=== PATIENT | male | born 1950 | race Caucasian/White ===

== ENCOUNTER 2021-01-22 10:29 | Inpatient (IN) ==
[2021-01-22] MEDS ORDERED: DEXTROSE 50% 25 GM/50 ML VIAL IV PRN ×2 (10:34)
[2021-01-22] MEDS ORDERED: GLUCAGON 1 MG VIAL IM PRN ×2 (10:34)
[2021-01-22] MEDS ORDERED: CLORAZEPATE 3.75 MG TABLET PO PRN (10:45)
[2021-01-22] MEDS ORDERED: SODIUM CHLORIDE 0.9% 1,000 ML IV SCH (11:00)
[2021-01-22 11:19] LABS: Basophils % 0.4 % (0.0-0.8); Eosinophils # 0.2 10*3/uL (0.0-0.87); Eosinophils % 2.2 % (0.00-10.9); Hematocrit 44.9 VOL% (42.0-52.0); Hemoglobin 14.5 GM/DL (14.0-18.0); Immature Granulocytes % 0.4 %; Immature Granulocytes Absolute 0.03 #; Lymphocytes # 0.8 10*3/uL (1.4-4.0); Lymphocytes % 11.2 % (21.2-54.2); Mean Corpuscular HGB Conc 32.3 GM/DL (32-36); Mean Corpuscular Volume 87.7 FL (87-102); Mean Platelet Volume 10.7 FL (9.6-12.0); Monocytes % 7.5 % (1.7-12.7); Neutrophils % 78.3 % (38.7-73.9); Platelet Count 161 T/CUMM (130-400); Red Blood Count 5.12 MC/CUMM (3.8-5.5); Red Cell Distribution Width 13.8 % (9.3-17.3); White Blood Count 6.9 T/CUMM (4-12)
[2021-01-22 11:36] LABS: Albumin 3.9 G/DL (3.4-5.0); Bilirubin,Total 0.5 MG/DL (0.20-1.00); Calcium 9.2 MG/DL (8.5-10.1); Potassium 4.1 MMOL/L (3.5-5.1); Total Protein 7.4 G/DL (6.4-8.2)
[2021-01-22] MEDS ORDERED: NITROGLYCERIN SL 0.4 MG TABLET SL PRN (12:15)
[2021-01-22] MEDS ORDERED: ALFUZOSIN 10 MG TABLET PO PRN (12:15)
[2021-01-22] MEDS: INSULIN REGULAR 100 UNIT/ML SUBCUT SCH ×3 (12:55→22:37)
[2021-01-22] MEDS: CHLORHEXIDINE 4% SOLN 118 ML BOTTLE TOP SCH ×2 (15:16→22:37)
[2021-01-22 16:58] LABS: ABG HCO3 25.3 MMOL/L (20-26); ABG Oxygen Saturation 97.2 % (95-100); ABG PCO2 37.9 MM HG (35-48); ABG PO2 85.7 MM HG (80-95); ABG TCO2 21.7 MMOL/L (23-27)
[2021-01-22] MEDS: CHLORHEXIDINE 0.12% ORAL RINSE 60 ML BOTTLE SWISH/SPIT SCH (21:05)
[2021-01-23] MEDS ORDERED: PAPAVERINE 60 MG/2 ML VIAL ONE (04:45)
[2021-01-23] MEDS ORDERED: VANCOMYCIN 500 MG VIAL ONE (04:45)
[2021-01-23] MEDS ORDERED: VANCOMYCIN 1,000 MG VIAL ONE (04:45)
[2021-01-23] MEDS ORDERED: DIAZEPAM 5 MG TABLET PO ONE (06:00)
[2021-01-23] MEDS ORDERED: FAMOTIDINE 20 MG TABLET PO ONE (06:00)
[2021-01-23] MEDS ORDERED: CEFUROXIME INJ 1,500 MG in SODIUM CHLORIDE 0.9% 100 ML IV ONE (06:00)
[2021-01-23] MEDS ORDERED: SEVOFLURANE 1 UNIT/15 MINUTE INH ONE ×19 (06:20→12:37)
[2021-01-23] MEDS ORDERED: CALCIUM CHLORIDE 1,000 MG/10 ML VIAL IV ONE (06:20)
[2021-01-23] MEDS ORDERED: LIDOCAINE 2% 5 ML VIAL ONE ×2 (06:20→10:40)
[2021-01-23] MEDS ORDERED: MIDAZOLAM 10 MG/2 ML VIAL ONE ×3 (06:20)
[2021-01-23] MEDS ORDERED: ETOMIDATE 40 MG/20 ML VIAL IV ONE (06:20)
[2021-01-23] MEDS ORDERED: VECURONIUM 10 MG VIAL IV ONE ×3 (06:20→12:37)
[2021-01-23] MEDS ORDERED: SUFentanil 250 MCG/5 ML AMP ONE ×3 (06:21)
[2021-01-23] MEDS ORDERED: PHENYLEPHRINE 10 MG/1 ML VIAL IV ONE (06:22)
[2021-01-23] MEDS ORDERED: AMINOCAPROIC ACID 5,000 MG/20 ML VIAL ONE (06:25)
[2021-01-23] MEDS ORDERED: ePHEDrine 50 MG/ML VIAL ONE (06:26)
[2021-01-23] MEDS ORDERED: SUCCINYLCHOLINE 200 MG/10 ML VIAL ONE (07:13)
[2021-01-23] MEDS ORDERED: MINERAL OIL/PETROLATUM OPH OINT 3.5 GM TUBE ONE (07:37)
[2021-01-23 07:44] LABS: ABG Base Excess 0.5 MMOL/L (-2.5-2.5); ABG HCO3 24.9 MMOL/L (20-26); ABG PCO2 37.1 MM HG (35-48); ABG PH 7.428 (7.35-7.45); ABG TCO2 21.3 MMOL/L (23-27); Glucose Heart Surgery 183 MG/DL (74-106); Hematocrit Heart Surgery 40.9 PERCENT (42-52); Hemoglobin Heart Surgery 13.3 G/DL (14.0-18.0); Ionized Calcium Arterial 1.14 MMOL/L (1.21-1.46); PCO2 Patient Temp Arterial 37.1 MMHG; PH Patient Temp Arterial 7.428; Patient Temperature 37 CELCIUS; Potassium Heart/CVR 4.7 MMOL/L (3.5-5.1); Sodium Heart/CVR 137 MMOL/L (135-145)
[2021-01-23 07:55] LABS: Bacteria,Urine Occasional /HPF (Few); Bilirubin,Urine Negative (Negative); Blood, Urine Small mg/dL (Negative); Glucose,Urine (UA) >=500 mg/dL (Negative); Ketones,Urine 20 mg/dL (Negative); Mucus,Urine Occasional /LPF (Occasional); Nitrite,Urine Negative (Negative); Protein,Urine Negative; RBC,Urine 19 /HPF (0-4); Urine Appearance CLEAR (Clear); Urine Color Straw (Yellow); Urine Specific Gravity 1.014 (1.001-1.035); Urine Urobilinogen < 2.0 EU/DL (0.2-1.0)
[2021-01-23] MEDS ORDERED: POTASSIUM CHLORIDE RIDER 20 MEQ/100 ML PREMIX IV ONE (08:16)
[2021-01-23] MEDS ORDERED: PHENYLEPHRINE DRIP 40 MG/250 ML PREMIX IV ONE (08:16)
[2021-01-23] MEDS ORDERED: NITROPRUSSIDE 50 MG/2 ML VIAL ONE (08:16)
[2021-01-23] MEDS ORDERED: SODIUM CHLORIDE 0.9% 1,000 ML IV ONE (09:06)
[2021-01-23] MEDS ORDERED: LACTATED RINGERS 1,000 ML IV ONE (09:06)
[2021-01-23] MEDS ORDERED: SODIUM CHLORIDE 0.9% 250 ML IV ONE ×2 (09:06)
[2021-01-23 09:28] LABS: Hematocrit Heart Surgery 29.5 PERCENT (42-52); Hemoglobin Heart Surgery 9.5 G/DL (14.0-18.0); PH Patient Temp Venous 7.473; PO2 Patient Temp Venous 35.5 MM HG; VBG Base Excess -0.3 MEQ/L (0-4); VBG Oxygen Saturation 81.5 %; VBG PCO2 35.9 MMHG (41-51); VBG PH 7.429; VBG PO2 43.7 MMHG (17-40); VBG Total CO2 21.8 MMOL/L
[2021-01-23] MEDS ORDERED: HEPARIN/NACL 0.9% 2 UNITS/ML 1,000 UNIT/500 ML BAG IV ONE (09:39)
[2021-01-23 10:00] LABS: Hematocrit Heart Surgery 30.9 PERCENT (42-52); PCO2 Patient Temp Venous 33.2 MM HG; PH Patient Temp Venous 7.438; PO2 Patient Temp Venous 39.5 MM HG; VBG Base Excess -1.1 MEQ/L (0-4); VBG HCO3 23.3 MEQ/L (24-28); VBG Oxygen Saturation 84.3 %; VBG PCO2 38.4 MMHG (41-51); VBG PH 7.395; VBG PO2 48.6 MMHG (17-40); VBG Total CO2 21.5 MMOL/L
[2021-01-23] MEDS ORDERED: methylPREDNISolone SOD SUC 1,000 MG/8 ML VIAL ONE (10:40)
[2021-01-23] MEDS ORDERED: ALBUMIN 25% 25 GM/100 ML VIAL IV ONE (10:40)
[2021-01-23] MEDS ORDERED: MAGNESIUM SULFATE 5 GM/10 ML VIAL IV ONE (10:40)
[2021-01-23] MEDS ORDERED: HEPARIN 10,000 UNIT/10 ML VIAL ONE (10:41)
[2021-01-23] MEDS ORDERED: PROTAMINE SULFATE 250 MG/25 ML VIAL IV ONE (10:41)
[2021-01-23] MEDS ORDERED: SODIUM BICARBONATE 50 MEQ/50 ML VIAL IV ONE (10:41)
[2021-01-23] MEDS ORDERED: FUROSEMIDE 20 MG/2 ML VIAL ONE (10:41)
[2021-01-23] MEDS ORDERED: PROTAMINE SULFATE 50 MG/5 ML VIAL IV ONE (10:41)
[2021-01-23] MEDS ORDERED: DEXTROSE 5% KCL 20 MEQ 20 MEQ/1,000 ML BAG IV ONE (10:41)
[2021-01-23] MEDS ORDERED: MANNITOL 100 GM/500 ML BAG IV ONE (10:41)
[2021-01-23 10:55] LABS: ABG Base Excess -2.7 MMOL/L (-2.5-2.5); ABG HCO3 21.5 MMOL/L (20-26); ABG Oxygen Saturation 99.1 % (95-100); ABG PCO2 35.4 MM HG (35-48); ABG PH 7.402 (7.35-7.45); ABG PO2 495.6 MM HG (80-95); ABG TCO2 22.6 MMOL/L (23-27); Glucose Heart Surgery 266 MG/DL (74-106); PCO2 Patient Temp Arterial 35.4 MMHG; PH Patient Temp Arterial 7.402; PO2 Patient Temp Arterial 495.6 MM HG; Patient Temperature 37 CELCIUS; Potassium Heart/CVR 4.2 MMOL/L (3.5-5.1); Sodium Heart/CVR 132 MMOL/L (135-145)
[2021-01-23] MEDS ORDERED: LACTATED RINGERS 250 ML IV PRN (11:39)
[2021-01-23] MEDS ORDERED: INSULIN REGULAR 100 UNIT/ML IV PRN (11:39)
[2021-01-23] MEDS ORDERED: MAGNESIUM SULF RIDER 4 GM/100 ML PREMIX IV PRN (11:39)
[2021-01-23] MEDS ORDERED: VECURONIUM 10 MG VIAL IV PRN ×2 (11:39)
[2021-01-23] MEDS ORDERED: CALCIUM CHLORIDE 1,000 MG/10 ML SYRINGE IV PRN (11:39)
[2021-01-23] MEDS ORDERED: INSULIN REGULAR 100 UNIT/ML IV ONE (11:39)
[2021-01-23] MEDS ORDERED: CHLORHEXIDINE 4% SOLN 118 ML BOTTLE TOP PRN (11:39)
[2021-01-23] MEDS ORDERED: POTASSIUM CHLORIDE RIDER 10 MEQ/100 ML PREMIX IV PRN (11:39)
[2021-01-23] MEDS ORDERED: PHENYLEPHRINE DRIP 40 MG/250 ML PREMIX IV PRN (11:39)
[2021-01-23] MEDS ORDERED: DEXTROSE 50% 25 GM/50 ML VIAL IV PRN ×2 (11:39)
[2021-01-23] MEDS ORDERED: INSULIN REGULAR DRIP 100 ML IV SCH (11:39)
[2021-01-23] MEDS ORDERED: SODIUM CHLORIDE 0.45% 1,000 ML IV SCH ×2 (11:39)
[2021-01-23] MEDS ORDERED: NITROPRUSSIDE 100 MG in DEXTROSE 5% 250 ML IV PRN (11:39)
[2021-01-23] MEDS ORDERED: ACETAMINOPHEN 650 MG SUPP RECTAL PRN (11:39)
[2021-01-23] MEDS ORDERED: MAGNESIUM SULF RIDER 2 GM/50 ML PREMIX IV PRN (11:39)
[2021-01-23] MEDS ORDERED: MIDAZOLAM 2 MG/2 ML VIAL IV PRN (11:39)
[2021-01-23] MEDS ORDERED: MIDAZOLAM 10 MG/2 ML VIAL IV PRN (11:39)
[2021-01-23 12:05] LABS: ABG Base Excess -0.9 MMOL/L (-2.5-2.5); ABG HCO3 23.7 MMOL/L (20-26); ABG Oxygen Saturation 99.8 % (95-100); ABG PCO2 38.1 MM HG (35-48); ABG TCO2 20.7 MMOL/L (23-27); Glucose Heart Surgery 236 MG/DL (74-106); Hematocrit Heart Surgery 39.4 PERCENT (42-52); Hemoglobin Heart Surgery 12.8 G/DL (14.0-18.0)
[2021-01-23 12:09] LABS: Basophils % 0.3 % (0.0-0.8); Eosinophils # 0.1 10*3/uL (0.0-0.87); Eosinophils % 0.7 % (0.00-10.9); Hematocrit 38.7 VOL% (42.0-52.0); Hemoglobin 12.5 GM/DL (14.0-18.0); Immature Granulocytes % 1.3 %; Immature Granulocytes Absolute 0.12 #; Lymphocytes # 0.5 10*3/uL (1.4-4.0); Lymphocytes % 5.3 % (21.2-54.2); Mean Corpuscular HGB Conc 32.3 GM/DL (32-36); Mean Platelet Volume 10.9 FL (9.6-12.0); Neutrophils % 86.4 % (38.7-73.9); Platelet Count 143 T/CUMM (130-400); Red Cell Distribution Width 13.9 % (9.3-17.3); White Blood Count 9.5 T/CUMM (4-12)
[2021-01-23] MEDS: LACTATED RINGERS 1,000 ML IV PRN ×4 (12:13→17:11)
[2021-01-23] MEDS: POTASSIUM CHLORIDE RIDER 20 MEQ/100 ML PREMIX IV PRN ×2 (12:25→13:30)
[2021-01-23 12:26] LABS: INR 1.1; PT Patient Result 11.8 SECS (10.5-12.0); Partial Thromboplastin Time 25.9 SECS (23.9-33.8)
[2021-01-23] MEDS: CHLORHEXIDINE 4% SOLN 118 ML BOTTLE TOP SCH (12:27)
[2021-01-23 12:35] LABS: High Sensitive Troponin I* 2386.5 ng/L (0-78)
[2021-01-23] MEDS ORDERED: NITROGLYCERIN DRIP 50 MG/250 ML BOTTLE IV ONE (12:35)
[2021-01-23] MEDS ORDERED: DEXMEDETOMIDINE 200 MCG in SODIUM CHLORIDE 0.9% 48 ML IV PRN (12:38)
[2021-01-23 12:56] LABS: Albumin 2.9 G/DL (3.4-5.0); Bilirubin,Total 0.9 MG/DL (0.20-1.00); Calcium 7.9 MG/DL (8.5-10.1); Osmolality,Calculated 297.6 MOS/KG (273-304); Potassium 3.2 MMOL/L (3.5-5.1); Total Protein 4.9 G/DL (6.4-8.2)
[2021-01-23 13:21] LABS: ABG Base Excess 0.2 MMOL/L (-2.5-2.5); ABG HCO3 24.6 MMOL/L (20-26); ABG Oxygen Saturation 99.4 % (95-100); ABG PCO2 38.9 MM HG (35-48); ABG TCO2 21.6 MMOL/L (23-27); Glucose Heart Surgery 206 MG/DL (74-106); Hematocrit Heart Surgery 39.4 PERCENT (42-52); Hemoglobin Heart Surgery 12.8 G/DL (14.0-18.0); Potassium Heart/CVR 3.9 MMOL/L (3.5-5.1)
[2021-01-23 15:24] LABS: ABG Base Excess 1.4 MMOL/L (-2.5-2.5); ABG HCO3 25.7 MMOL/L (20-26); ABG Oxygen Saturation 99.2 % (95-100); ABG PH 7.412 (7.35-7.45); ABG TCO2 22.9 MMOL/L (23-27); Glucose Heart Surgery 166 MG/DL (74-106); Hematocrit Heart Surgery 38.6 PERCENT (42-52); Hemoglobin Heart Surgery 12.5 G/DL (14.0-18.0); Potassium Heart/CVR 4.2 MMOL/L (3.5-5.1)
[2021-01-23] MEDS: ALBUMIN 5% 12.5 GM/250 ML VIAL IV PRN ×2 (16:33→16:50)
[2021-01-23 18:21] LABS: ABG Base Excess 1.2 MMOL/L (-2.5-2.5); ABG HCO3 25.5 MMOL/L (20-26); ABG Oxygen Saturation 99.2 % (95-100); ABG PCO2 40.1 MM HG (35-48); ABG PH 7.415 (7.35-7.45); ABG TCO2 22.9 MMOL/L (23-27); Glucose Heart Surgery 149 MG/DL (74-106); Hematocrit Heart Surgery 35.4 PERCENT (42-52); Hemoglobin Heart Surgery 11.5 G/DL (14.0-18.0); Potassium Heart/CVR 4.1 MMOL/L (3.5-5.1)
[2021-01-23] MEDS: CEFUROXIME INJ 1,500 MG in SODIUM CHLORIDE 0.9% 100 ML IV SCH (18:32)
[2021-01-23 19:07] LABS: CKMB % 5.8 %; High Sensitive Troponin I* 2514.4 ng/L (0-78)
[2021-01-23] MEDS: CHLORHEXIDINE 0.12% ORAL RINSE 60 ML BOTTLE SWISH/SPIT SCH (20:45)
[2021-01-23] MEDS ORDERED: PANTOPRAZOLE 40 MG VIAL IV SCH (21:00)
[2021-01-23 21:16] LABS: ABG Base Excess 0.2 MMOL/L (-2.5-2.5); ABG HCO3 24.6 MMOL/L (20-26); ABG Oxygen Saturation 98.7 % (95-100); ABG PCO2 44.4 MM HG (35-48); ABG PH 7.371 (7.35-7.45); ABG TCO2 22.9 MMOL/L (23-27); Glucose Heart Surgery 161 MG/DL (74-106); Hematocrit Heart Surgery 36.2 PERCENT (42-52); Hemoglobin Heart Surgery 11.8 G/DL (14.0-18.0); Potassium Heart/CVR 4.2 MMOL/L (3.5-5.1)
[2021-01-23 22:32] LABS: ABG Base Excess -0.7 MMOL/L (-2.5-2.5); ABG HCO3 24.3 MMOL/L (20-26); ABG Oxygen Saturation 98.2 % (95-100); ABG PCO2 41.3 MM HG (35-48); ABG PH 7.387 (7.35-7.45); ABG PO2 143.2 MM HG (80-95); ABG TCO2 25.5 MMOL/L (23-27); Glucose Heart Surgery 151 MG/DL (74-106); Hemoglobin Heart Surgery 12.4 G/DL (14.0-18.0); Potassium Heart/CVR 4.4 MMOL/L (3.5-5.1)
[2021-01-23] MEDS: MORPHINE 10 MG/1 ML VIAL IV PRN (23:00)
[2021-01-23] MEDS: ONDANSETRON 4 MG/2 ML VIAL IV PRN (23:00)
[2021-01-23 23:50] LABS: ABG Base Excess -0.7 MMOL/L (-2.5-2.5); ABG HCO3 23.8 MMOL/L (20-26); ABG Oxygen Saturation 98.3 % (95-100); ABG PCO2 44.2 MM HG (35-48); ABG PH 7.359 (7.35-7.45); ABG TCO2 22.3 MMOL/L (23-27); Glucose Heart Surgery 171 MG/DL (74-106); Hematocrit Heart Surgery 36.1 PERCENT (42-52); Hemoglobin Heart Surgery 11.7 G/DL (14.0-18.0); Potassium Heart/CVR 4.4 MMOL/L (3.5-5.1)
[2021-01-24] MEDS ORDERED: FUROSEMIDE 40 MG/4 ML VIAL IV ONE ×2 (02:10→09:00)
[2021-01-24] MEDS: MORPHINE 10 MG/1 ML VIAL IV PRN ×3 (02:22→07:46)
[2021-01-24 03:42] LABS: ABG Base Excess -1.9 MMOL/L (-2.5-2.5); ABG HCO3 23.2 MMOL/L (20-26); ABG Oxygen Saturation 97.7 % (95-100); ABG PCO2 41.1 MM HG (35-48); ABG PO2 111.7 MM HG (80-95); ABG TCO2 24.5 MMOL/L (23-27); Glucose Heart Surgery 178 MG/DL (74-106); Hemoglobin Heart Surgery 12.3 G/DL (14.0-18.0); Potassium Heart/CVR 4.5 MMOL/L (3.5-5.1)
[2021-01-24 03:46] LABS: Basophils % 0.1 % (0.0-0.8); Hematocrit 36.6 VOL% (42.0-52.0); Hemoglobin 11.4 GM/DL (14.0-18.0); Immature Granulocytes % 0.4 %; Immature Granulocytes Absolute 0.04 #; Lymphocytes # 0.4 10*3/uL (1.4-4.0); Lymphocytes % 3.1 % (21.2-54.2); Mean Corpuscular HGB Conc 31.1 GM/DL (32-36); Mean Corpuscular Volume 90.8 FL (87-102); Mean Platelet Volume 11.3 FL (9.6-12.0); Monocytes % 4.3 % (1.7-12.7); Neutrophils % 92.1 % (38.7-73.9); Platelet Count 140 T/CUMM (130-400); Red Blood Count 4.03 MC/CUMM (3.8-5.5); Red Cell Distribution Width 13.9 % (9.3-17.3); White Blood Count 11.2 T/CUMM (4-12)
[2021-01-24 04:05] LABS: Hypochromasia Slight; Lymphocytes 4 % (20-55); Platelet Estimate Adequate; Segmented Neutrophils 93 % (50-85); Total Cells Counted 100
[2021-01-24 04:17] LABS: Albumin 3.9 G/DL (3.4-5.0); Bilirubin,Direct 0.15 MG/DL (0.0-0.20); Bilirubin,Total 0.6 MG/DL (0.20-1.00); Calcium 8.3 MG/DL (8.5-10.1); Osmolality,Calculated 290.1 MOS/KG (273-304); Potassium 4.6 MMOL/L (3.5-5.1)
[2021-01-24 04:20] LABS: High Sensitive Troponin I* 3037.6 ng/L (0-78)
[2021-01-24] MEDS: INSULIN REGULAR 100 UNIT/ML SUBCUT SCH ×6 (04:44→20:33)
[2021-01-24] MEDS ORDERED: INSULIN REGULAR 100 UNIT/ML SUBCUT SCH (06:00)
[2021-01-24] MEDS: CEFUROXIME INJ 1,500 MG in SODIUM CHLORIDE 0.9% 100 ML IV SCH ×2 (06:02→20:38)
[2021-01-24] MEDS ORDERED: ALFUZOSIN 10 MG TABLET PO PRN (07:06)
[2021-01-24] MEDS: ONDANSETRON 4 MG/2 ML VIAL IV PRN (07:47)
[2021-01-24] MEDS ORDERED: oxyCODONE/ACETAMINOPHEN 5-325 MG TABLET PO PRN (08:15)
[2021-01-24] MEDS: CHLORHEXIDINE 0.12% ORAL RINSE 60 ML BOTTLE SWISH/SPIT SCH ×3 (08:25→20:40)
[2021-01-24] MEDS: KETOROLAC 30 MG/1 ML VIAL IV SCH ×3 (08:34→20:32)
[2021-01-24] MEDS ORDERED: CLORAZEPATE 7.5 MG TABLET PO PRN (09:09)
[2021-01-24] MEDS: hydroCHLOROthiazide 12.5 MG CAPSULE PO SCH (09:24)
[2021-01-24] MEDS: TAMSULOSIN 0.4 MG CAPSULE PO SCH (09:24)
[2021-01-24] MEDS: PANTOPRAZOLE 40 MG TABLET PO SCH (09:24)
[2021-01-24] MEDS: METOPROLOL SUCCINATE XL 50 MG TABLET PO SCH (09:24)
[2021-01-24] MEDS: ASPIRIN EC 325 MG TABLET PO SCH (09:24)
[2021-01-24] MEDS: ASCORBIC ACID 500 MG TABLET PO SCH ×2 (10:44→20:34)
[2021-01-24] MEDS ORDERED: ONDANSETRON 4 MG/2 ML VIAL IV PRN (11:23)
[2021-01-24] MEDS ORDERED: ALUMINUM/MAGNES/SIMETH MAX STR 30 ML UDCUP PO PRN (11:23)
[2021-01-24] MEDS ORDERED: GLUCAGON 1 MG VIAL IM PRN ×2 (11:23)
[2021-01-24] MEDS ORDERED: ACETAMINOPHEN 325 MG TABLET PO PRN (11:23)
[2021-01-24] MEDS ORDERED: ZALEPLON 5 MG CAPSULE PO PRN (11:23)
[2021-01-24] MEDS ORDERED: SODIUM CHLOR 0.45% KCL 20 MEQ 20 MEQ/1,000 ML BAG IV SCH (11:23)
[2021-01-24] MEDS ORDERED: DEXTROSE 50% 25 GM/50 ML VIAL IV PRN ×2 (11:23)
[2021-01-24] MEDS ORDERED: MAGNESIUM SULF RIDER 4 GM/100 ML PREMIX IV PRN (11:23)
[2021-01-24] MEDS ORDERED: MAGNESIUM HYDROXIDE SUSP 30 ML UDCUP PO PRN (11:23)
[2021-01-24] MEDS ORDERED: POTASSIUM CHLORIDE 20 MEQ TABLET PO PRN (11:23)
[2021-01-24] MEDS ORDERED: MAGNESIUM SULF RIDER 2 GM/50 ML PREMIX IV PRN (11:23)
[2021-01-24 13:26] LABS: CKMB % 7.2 %
[2021-01-24 13:28] LABS: High Sensitive Troponin I* 3737.7 ng/L (0-78)
[2021-01-24] MEDS: ROSUVASTATIN 20 MG TABLET PO SCH (20:34)
[2021-01-25] MEDS: INSULIN REGULAR 100 UNIT/ML SUBCUT SCH ×7 (00:09→23:29)
[2021-01-25] MEDS: KETOROLAC 30 MG/1 ML VIAL IV SCH (02:10)
[2021-01-25 04:33] LABS: Basophils % 0.1 % (0.0-0.8); Eosinophils % 0.2 % (0.00-10.9); Hematocrit 34.7 VOL% (42.0-52.0); Hemoglobin 10.9 GM/DL (14.0-18.0); Immature Granulocytes % 0.8 %; Immature Granulocytes Absolute 0.11 #; Lymphocytes # 1.1 10*3/uL (1.4-4.0); Lymphocytes % 8.6 % (21.2-54.2); Mean Corpuscular HGB Conc 31.4 GM/DL (32-36); Mean Corpuscular Volume 91.6 FL (87-102); Mean Platelet Volume 11.3 FL (9.6-12.0); Monocytes % 9.1 % (1.7-12.7); Neutrophils % 81.2 % (38.7-73.9); Platelet Count 167 T/CUMM (130-400); Red Blood Count 3.79 MC/CUMM (3.8-5.5); Red Cell Distribution Width 14.3 % (9.3-17.3); White Blood Count 13.1 T/CUMM (4-12)
[2021-01-25 05:15] LABS: Alanine Aminotransferase 30 U/L (16-61); Albumin 3.4 G/DL (3.4-5.0); Alkaline Phosphatase 51 U/L (45-117); Aspartate Amino Transferase 52 U/L (0-37); Bilirubin,Direct < 0.100 MG/DL (0.0-0.20); Blood Urea Nitrogen 39 MG/DL (7-18); Calcium 7.9 MG/DL (8.5-10.1); Carbon Dioxide 29 MMOL/L (21-32); Estimated Glom Filtration Rate 64 ML/MIN; Glucose 127 MG/DL (74-106); Osmolality,Calculated 287.5 MOS/KG (273-304); Potassium 4.5 MMOL/L (3.5-5.1); Sodium 139 MMOL/L (136-145); Total Protein 5.6 G/DL (6.4-8.2)
[2021-01-25 05:19] LABS: Albumin 3.3 G/DL (3.4-5.0); Bilirubin,Direct 0.11 MG/DL (0.0-0.20); Bilirubin,Indirect 0.5 MG/DL (0.0-1.0); Bilirubin,Total 0.6 MG/DL (0.20-1.00); CKMB % 6.9 %
[2021-01-25 05:25] LABS: High Sensitive Troponin I* 8573.4 ng/L (0-78)
[2021-01-25] MEDS ORDERED: FUROSEMIDE 40 MG/4 ML VIAL IV ONE (06:00)
[2021-01-25] MEDS: ASPIRIN EC 325 MG TABLET PO SCH (08:40)
[2021-01-25] MEDS: ASCORBIC ACID 500 MG TABLET PO SCH ×2 (08:40→20:19)
[2021-01-25] MEDS: DOCUSATE SODIUM 100 MG CAPSULE PO SCH (08:41)
[2021-01-25] MEDS: METOPROLOL SUCCINATE XL 50 MG TABLET PO SCH (08:41)
[2021-01-25] MEDS: TAMSULOSIN 0.4 MG CAPSULE PO SCH (08:41)
[2021-01-25] MEDS: PANTOPRAZOLE 40 MG TABLET PO SCH (08:41)
[2021-01-25] MEDS: hydroCHLOROthiazide 12.5 MG CAPSULE PO SCH (08:41)
[2021-01-25] MEDS: FERROUS SULFATE 325 MG TABLET PO SCH (08:41)
[2021-01-25] MEDS: CHLORHEXIDINE 0.12% ORAL RINSE 60 ML BOTTLE SWISH/SPIT SCH ×2 (09:56→20:20)
[2021-01-25] MEDS: ROSUVASTATIN 20 MG TABLET PO SCH (20:19)
[2021-01-26] MEDS: INSULIN REGULAR 100 UNIT/ML SUBCUT SCH ×5 (04:19→21:21)
[2021-01-26 05:04] LABS: Basophils % 0.4 % (0.0-0.8); Eosinophils # 0.2 10*3/uL (0.0-0.87); Eosinophils % 2.5 % (0.00-10.9); Hematocrit 34.3 VOL% (42.0-52.0); Hemoglobin 11.4 GM/DL (14.0-18.0); Immature Granulocytes % 0.6 %; Immature Granulocytes Absolute 0.05 #; Lymphocytes % 11.3 % (21.2-54.2); Mean Corpuscular HGB Conc 33.2 GM/DL (32-36); Mean Corpuscular Volume 89.3 FL (87-102); Mean Platelet Volume 11.1 FL (9.6-12.0); Monocytes % 9.6 % (1.7-12.7); Neutrophils % 75.6 % (38.7-73.9); Platelet Count 146 T/CUMM (130-400); Red Blood Count 3.84 MC/CUMM (3.8-5.5); Red Cell Distribution Width 14.2 % (9.3-17.3)
[2021-01-26 05:31] LABS: Albumin 3.2 G/DL (3.4-5.0); Albumin 3.3 G/DL (3.4-5.0); Bilirubin,Direct 0.14 MG/DL (0.0-0.20); Bilirubin,Direct 0.18 MG/DL (0.0-0.20); Bilirubin,Indirect 0.8 MG/DL (0.0-1.0); Bilirubin,Total 1.2 MG/DL (0.20-1.00); CKMB % 2.7 %; Calcium 8.3 MG/DL (8.5-10.1); Osmolality,Calculated 286.8 MOS/KG (273-304); Potassium 3.7 MMOL/L (3.5-5.1); Total Protein 5.4 G/DL (6.4-8.2); Total Protein 5.9 G/DL (6.4-8.2)
[2021-01-26 05:32] LABS: High Sensitive Troponin I* 6608.9 ng/L (0-78)
[2021-01-26] MEDS: FERROUS SULFATE 325 MG TABLET PO SCH (08:20)
[2021-01-26] MEDS: TAMSULOSIN 0.4 MG CAPSULE PO SCH (08:20)
[2021-01-26] MEDS: PANTOPRAZOLE 40 MG TABLET PO SCH (08:20)
[2021-01-26] MEDS: ASCORBIC ACID 500 MG TABLET PO SCH ×2 (08:20→21:22)
[2021-01-26] MEDS: METOPROLOL SUCCINATE XL 25 MG TABLET PO SCH (08:20)
[2021-01-26] MEDS: ASPIRIN EC 325 MG TABLET PO SCH (08:20)
[2021-01-26] MEDS: hydroCHLOROthiazide 12.5 MG CAPSULE PO SCH (08:21)
[2021-01-26] MEDS: DOCUSATE SODIUM 100 MG CAPSULE PO SCH (08:25)
[2021-01-26] MEDS: CHLORHEXIDINE 0.12% ORAL RINSE 60 ML BOTTLE SWISH/SPIT SCH ×2 (08:26→21:26)
[2021-01-26] MEDS: JARDIANCE (EMPAGLIFLOZIN) 25 MG TABLET PO SCH (08:26)
[2021-01-26] MEDS: POLYETHYLENE GLYCOL POWDER 17 GM PACK PO SCH (08:27)
[2021-01-26] MEDS: ROSUVASTATIN 20 MG TABLET PO SCH (21:22)
[2021-01-27] MEDS: INSULIN REGULAR 100 UNIT/ML SUBCUT SCH ×6 (00:15→20:53)
[2021-01-27 05:39] LABS: Basophils % 0.2 % (0.0-0.8); Eosinophils # 0.2 10*3/uL (0.0-0.87); Eosinophils % 2.3 % (0.00-10.9); Hematocrit 36.2 VOL% (42.0-52.0); Hemoglobin 11.3 GM/DL (14.0-18.0); Immature Granulocytes Absolute 0.08 #; Lymphocytes # 0.9 10*3/uL (1.4-4.0); Lymphocytes % 10.1 % (21.2-54.2); Mean Corpuscular HGB Conc 31.2 GM/DL (32-36); Mean Corpuscular Volume 90.5 FL (87-102); Mean Platelet Volume 11.3 FL (9.6-12.0); Monocytes % 7.4 % (1.7-12.7); Platelet Count 172 T/CUMM (130-400); White Blood Count 8.4 T/CUMM (4-12)
[2021-01-27 06:09] LABS: Calcium 8.5 MG/DL (8.5-10.1); Osmolality,Calculated 284.7 MOS/KG (273-304); Potassium 3.8 MMOL/L (3.5-5.1)
[2021-01-27] MEDS: POLYETHYLENE GLYCOL POWDER 17 GM PACK PO SCH (09:19)
[2021-01-27] MEDS: FERROUS SULFATE 325 MG TABLET PO SCH (09:20)
[2021-01-27] MEDS: hydroCHLOROthiazide 12.5 MG CAPSULE PO SCH (09:20)
[2021-01-27] MEDS: PANTOPRAZOLE 40 MG TABLET PO SCH (09:20)
[2021-01-27] MEDS: ASCORBIC ACID 500 MG TABLET PO SCH ×2 (09:20→20:52)
[2021-01-27] MEDS: METOPROLOL SUCCINATE XL 25 MG TABLET PO SCH (09:20)
[2021-01-27] MEDS: ASPIRIN EC 325 MG TABLET PO SCH (09:20)
[2021-01-27] MEDS: TAMSULOSIN 0.4 MG CAPSULE PO SCH (09:20)
[2021-01-27] MEDS: DOCUSATE SODIUM 100 MG CAPSULE PO SCH (09:20)
[2021-01-27] MEDS: CHLORHEXIDINE 0.12% ORAL RINSE 60 ML BOTTLE SWISH/SPIT SCH ×2 (09:22→20:52)
[2021-01-27] MEDS: JARDIANCE (EMPAGLIFLOZIN) 25 MG TABLET PO SCH (09:22)
[2021-01-27] MEDS ORDERED: LACTULOSE 20 GM/30 ML UDCUP PO PRN (09:59)
[2021-01-27] MEDS ORDERED: LACTULOSE 20 GM/30 ML UDCUP PO ONE (09:59)
[2021-01-27] MEDS: ROSUVASTATIN 20 MG TABLET PO SCH (20:52)
[2021-01-28 05:20] LABS: Basophils % 0.4 % (0.0-0.8); Eosinophils # 0.4 10*3/uL (0.0-0.87); Eosinophils % 3.6 % (0.00-10.9); Hematocrit 36.1 VOL% (42.0-52.0); Hemoglobin 11.6 GM/DL (14.0-18.0); Immature Granulocytes % 0.7 %; Immature Granulocytes Absolute 0.07 #; Lymphocytes # 1.5 10*3/uL (1.4-4.0); Lymphocytes % 15.2 % (21.2-54.2); Mean Corpuscular HGB Conc 32.1 GM/DL (32-36); Mean Corpuscular Volume 89.4 FL (87-102); Mean Platelet Volume 11.3 FL (9.6-12.0); Neutrophils % 73.1 % (38.7-73.9); Platelet Count 207 T/CUMM (130-400); Red Blood Count 4.04 MC/CUMM (3.8-5.5); Red Cell Distribution Width 13.9 % (9.3-17.3); White Blood Count 9.9 T/CUMM (4-12)
[2021-01-28 05:52] LABS: Alanine Aminotransferase 15 U/L (16-61); Albumin 3.2 G/DL (3.4-5.0); Alkaline Phosphatase 55 U/L (45-117); Aspartate Amino Transferase 15 U/L (0-37); Bilirubin,Indirect 0.7 MG/DL (0.0-1.0); Blood Urea Nitrogen 28 MG/DL (7-18); Calcium 8.4 MG/DL (8.5-10.1); Carbon Dioxide 25 MMOL/L (21-32); Estimated Glom Filtration Rate 105 ML/MIN; Glucose 125 MG/DL (74-106); Potassium 3.8 MMOL/L (3.5-5.1); Sodium 136 MMOL/L (136-145); Total Protein 6.3 G/DL (6.4-8.2)
[2021-01-28] MEDS: INSULIN REGULAR 100 UNIT/ML SUBCUT SCH ×4 (08:02→21:41)
[2021-01-28] MEDS: CHLORHEXIDINE 0.12% ORAL RINSE 60 ML BOTTLE SWISH/SPIT SCH ×2 (10:13→21:40)
[2021-01-28] MEDS: DOCUSATE SODIUM 100 MG CAPSULE PO SCH (10:14)
[2021-01-28] MEDS: FERROUS SULFATE 325 MG TABLET PO SCH (10:15)
[2021-01-28] MEDS: ASCORBIC ACID 500 MG TABLET PO SCH ×2 (10:15→21:40)
[2021-01-28] MEDS: POLYETHYLENE GLYCOL POWDER 17 GM PACK PO SCH (10:15)
[2021-01-28] MEDS: PANTOPRAZOLE 40 MG TABLET PO SCH (10:15)
[2021-01-28] MEDS: TAMSULOSIN 0.4 MG CAPSULE PO SCH (10:15)
[2021-01-28] MEDS: ASPIRIN EC 325 MG TABLET PO SCH (10:15)
[2021-01-28] MEDS: JARDIANCE (EMPAGLIFLOZIN) 25 MG TABLET PO SCH (10:17)
[2021-01-28] MEDS ORDERED: LACTULOSE 20 GM/30 ML UDCUP PO ONE (10:19)
[2021-01-28] MEDS: hydroCHLOROthiazide 12.5 MG CAPSULE PO SCH (13:59)
[2021-01-28] MEDS: METOPROLOL SUCCINATE XL 25 MG TABLET PO SCH (13:59)
[2021-01-28] MEDS: ROSUVASTATIN 20 MG TABLET PO SCH (21:40)
[2021-01-29 05:43] LABS: Basophils % 0.4 % (0.0-0.8); Eosinophils # 0.3 10*3/uL (0.0-0.87); Eosinophils % 4.1 % (0.00-10.9); Hematocrit 31.6 VOL% (42.0-52.0); Hemoglobin 10.1 GM/DL (14.0-18.0); Immature Granulocytes % 0.8 %; Immature Granulocytes Absolute 0.07 #; Lymphocytes % 12.2 % (21.2-54.2); Mean Corpuscular Volume 88.5 FL (87-102); Mean Platelet Volume 10.8 FL (9.6-12.0); Monocytes % 8.7 % (1.7-12.7); Neutrophils % 73.8 % (38.7-73.9); Platelet Count 204 T/CUMM (130-400); Red Blood Count 3.57 MC/CUMM (3.8-5.5); Red Cell Distribution Width 13.8 % (9.3-17.3); White Blood Count 8.4 T/CUMM (4-12)
[2021-01-29 06:14] LABS: Alanine Aminotransferase 17 U/L (16-61); Alkaline Phosphatase 55 U/L (45-117); Aspartate Amino Transferase 11 U/L (0-37); Bilirubin,Indirect 0.4 MG/DL (0.0-1.0); Blood Urea Nitrogen 23 MG/DL (7-18); Calcium 8.3 MG/DL (8.5-10.1); Carbon Dioxide 26 MMOL/L (21-32); Estimated Glom Filtration Rate 115 ML/MIN; Glucose 137 MG/DL (74-106); Osmolality,Calculated 278.8 MOS/KG (273-304); Potassium 3.7 MMOL/L (3.5-5.1); Sodium 137 MMOL/L (136-145); Total Protein 5.8 G/DL (6.4-8.2)
[2021-01-29] MEDS: INSULIN REGULAR 100 UNIT/ML SUBCUT SCH ×4 (08:23→21:10)
[2021-01-29] MEDS: ASPIRIN EC 325 MG TABLET PO SCH (08:56)
[2021-01-29] MEDS: DOCUSATE SODIUM 100 MG CAPSULE PO SCH (08:56)
[2021-01-29] MEDS: PANTOPRAZOLE 40 MG TABLET PO SCH (08:56)
[2021-01-29] MEDS: CHLORHEXIDINE 0.12% ORAL RINSE 60 ML BOTTLE SWISH/SPIT SCH ×2 (08:57→21:12)
[2021-01-29] MEDS: POLYETHYLENE GLYCOL POWDER 17 GM PACK PO SCH (08:57)
[2021-01-29] MEDS: METOPROLOL SUCCINATE XL 25 MG TABLET PO SCH (08:57)
[2021-01-29] MEDS: hydroCHLOROthiazide 12.5 MG CAPSULE PO SCH (08:57)
[2021-01-29] MEDS: TAMSULOSIN 0.4 MG CAPSULE PO SCH (08:57)
[2021-01-29] MEDS: ASCORBIC ACID 500 MG TABLET PO SCH ×2 (08:57→21:09)
[2021-01-29] MEDS: JARDIANCE (EMPAGLIFLOZIN) 25 MG TABLET PO SCH (08:57)
[2021-01-29] MEDS: FERROUS SULFATE 325 MG TABLET PO SCH (10:21)
[2021-01-29] MEDS: ROSUVASTATIN 20 MG TABLET PO SCH (21:09)
[2021-01-30 06:47] LABS: Calcium 8.5 MG/DL (8.5-10.1); Osmolality,Calculated 280.5 MOS/KG (273-304); Potassium 3.7 MMOL/L (3.5-5.1)
[2021-01-30] MEDS: INSULIN REGULAR 100 UNIT/ML SUBCUT SCH (10:00)
[2021-01-30] MEDS: ASPIRIN EC 325 MG TABLET PO SCH (10:03)
[2021-01-30] MEDS: METOPROLOL SUCCINATE XL 25 MG TABLET PO SCH (10:04)
[2021-01-30] MEDS: DOCUSATE SODIUM 100 MG CAPSULE PO SCH (10:04)
[2021-01-30] MEDS: TAMSULOSIN 0.4 MG CAPSULE PO SCH (10:04)
[2021-01-30] MEDS: PANTOPRAZOLE 40 MG TABLET PO SCH (10:04)
[2021-01-30] MEDS: hydroCHLOROthiazide 12.5 MG CAPSULE PO SCH (10:04)
[2021-01-30] MEDS: ASCORBIC ACID 500 MG TABLET PO SCH (10:05)
[2021-01-30] MEDS: POLYETHYLENE GLYCOL POWDER 17 GM PACK PO SCH (10:05)
[2021-01-30] MEDS: FERROUS SULFATE 325 MG TABLET PO SCH (10:07)
[2021-01-30] MEDS: CHLORHEXIDINE 0.12% ORAL RINSE 60 ML BOTTLE SWISH/SPIT SCH (10:23)
[2021-01-30] MEDS: JARDIANCE (EMPAGLIFLOZIN) 25 MG TABLET PO SCH (10:23)
[2021-01-30 11:59] VITALS: BP 128/54
== END 2021-01-30 13:11 | disposition home health service (06) | DRG 236 ==
LOC: N.TELES 10:29 → N.CVR 01-23 10:42 → N.TELES 01-24 10:10